=== PATIENT | male | born 1950 | race Caucasian/White ===

== ENCOUNTER 2017-06-14 09:43 | Inpatient (IN) | payer MEDICARE ==
[~2017-06-14] VITALS: Ht 177.8 cm; Wt 77.7 kg
[~2017-06-14 09:43] MED LIST: ASPI-496 PO; CELE200C PO; DIAZ5TAB PO; DOCU-131 PO; FISH OIL PO; ONDA4TAB7 PO; OXYC5CAP2 PO; TRAM50TA2 PO; VITAMIN D3 PO
[2017-06-14] MEDS ORDERED: LACTATED RINGERS 1,000 ML IV SCH ×2 (10:17→10:43)
[2017-06-14] MEDS ORDERED: FENTANYL PF 250 MCG/5ML ONE (10:19)
[2017-06-14] MEDS ORDERED: MIDAZOLAM 1 MG/ML, 2ML ONE (10:19)
[2017-06-14] MEDS ORDERED: BUPIVACAINE/PF 0.25% ONE (10:20)
[2017-06-14] MEDS ORDERED: LIDOCAINE-MPF 2% ,5ML ONE (10:20)
[2017-06-14] MEDS ORDERED: DEXAMETHASONE 4 MG/ML, 1ML ONE (10:21)
[2017-06-14] MEDS ORDERED: CEFAZOLIN 1,000 MG ONE (10:21)
[2017-06-14] MEDS ORDERED: ONDANSETRON 2MG/ML, 2ML ONE (10:21)
[2017-06-14] MEDS ORDERED: PROPOFOL 10 MG/ML, 20ML ONE (10:21)
[2017-06-14] MEDS ORDERED: ONDANSETRON ODT 8 MG PO ONE (10:30)
[2017-06-14] MEDS ORDERED: ACETAMINOPHEN 500 MG TABLET PO ONE (10:30)
[2017-06-14] MEDS ORDERED: VANCOMYCIN PER PHARMACY MC STA (10:48)
[2017-06-14] MEDS ORDERED: GABAPENTIN 300 MG CAPSULE PO ONE (11:00)
[2017-06-14] MEDS ORDERED: VANCOMYCIN 1,400 MG in SODIUM CHLORIDE 0.9% 250 ML IV ONE (11:00)
[2017-06-14] MEDS ORDERED: TRANEXAMIC ACID 100 MG/ML, 10ML ONE ×4 (11:12)
[2017-06-14] MEDS ORDERED: KETOROLAC 60 MG/2 ML ONE (11:12)
[2017-06-14] MEDS ORDERED: EPINEPHRINE 1 MG/ML, 1ML ONE (11:13)
[2017-06-14] MEDS ORDERED: SODIUM CHLORIDE 0.9% 100 ML ONE (11:13)
[2017-06-14] MEDS ORDERED: ROPIvacaine/PF 0.2%, 20 ML ONE (11:13)
[2017-06-14] MEDS: OXYcodone IR 5MG TABLET PO PRN ×4 (11:14→19:46)
[2017-06-14] MEDS ORDERED: PHENYLEPHRINE 10 MG/ML ONE (11:39)
[2017-06-14] MEDS ORDERED: KETAMINE 100 MG/ML, 5ML ONE (11:39)
[2017-06-14] MEDS ORDERED: ONDANSETRON 2MG/ML, 2ML IVPush PRN (12:30)
[2017-06-14] MEDS ORDERED: ALBUTEROL SULFATE 2.5 MG/3 ML NPPB PRN (12:30)
[2017-06-14] MEDS ORDERED: MIDAZOLAM 1 MG/ML, 2ML IV PRN (12:30)
[2017-06-14] MEDS ORDERED: LABETALOL 5MG/ML, 20ML IV PRN (12:30)
[2017-06-14] MEDS ORDERED: LORazepam 2 MG/ML, 1ML IVPush PRN (12:30)
[2017-06-14] MEDS ORDERED: MEPERIDINE/PF 25MG/0.5ML IVPush PRN (12:30)
[2017-06-14] MEDS ORDERED: PROMETHAZINE 25 MG/ML, 1ML IV PRN (12:30)
[2017-06-14] MEDS ORDERED: ALBUTEROL/IPRATROPIUM 2.5MG/0.5MG, 3 ML NPPB PRN (12:30)
[2017-06-14] MEDS ORDERED: FENTANYL PF 100 MCG/2ML IV PRN (12:30)
[2017-06-14] MEDS ORDERED: morphine SULFATE 10 MG/ML, 1ML IV PRN (12:30)
[2017-06-14] MEDS ORDERED: DIAZEPAM 5 MG/ML, 2ML IVPush PRN (12:30)
[2017-06-14] MEDS ORDERED: hydrALAzine 20 MG/ML, 1ML IV PRN (12:30)
[2017-06-14] MEDS ORDERED: OXYcodone 5 MG/5 ML ORAL.SOL UDC PO PRN (12:30)
[2017-06-14] MEDS ORDERED: FENTANYL PF 100 MCG/2ML ONE (13:39)
[2017-06-14] MEDS ORDERED: OXYcodone 5 MG/5 ML ORAL.SOL UDC ONE (13:40)
[2017-06-14] MEDS ORDERED: ALUMINUM/MAG/SIMETHICONE 30 ML UDC PO PRN (14:00)
[2017-06-14] MEDS ORDERED: TRANEXAMIC ACID 1,000 MG in SODIUM CHLORIDE 0.9% 100 ML IVPB ONE (14:00)
[2017-06-14] MEDS ORDERED: SENNA/DOCUSATE TABLET PO PRN (14:00)
[2017-06-14] MEDS ORDERED: ONDANSETRON 2MG/ML, 2ML IV PRN (14:00)
[2017-06-14] MEDS ORDERED: DIPHENHYDRAMINE 50 MG CAPSULE PO PRN (14:00)
[2017-06-14] MEDS ORDERED: ACETAMINOPHEN 650 MG/20.3 ML UDC PO PRN (14:00)
[2017-06-14] MEDS ORDERED: HYDROmorphone 1 MG/ML, 1ML IV PRN (14:00)
[2017-06-14] MEDS ORDERED: ONDANSETRON 4 MG TABLET PO PRN (14:00)
[2017-06-14] MEDS ORDERED: MAGNESIUM HYDROXIDE 8%, 30ML UDC PO PRN (14:00)
[2017-06-14 15:16] VITALS: BP 104/68
[2017-06-14] MEDS: DIAZEPAM 5 MG TABLET PO PRN ×2 (15:27→19:45)
[2017-06-14] MEDS: D5%-0.45NACL+KCL 20MEQ 1,000 ML IV SCH ×2 (15:40→18:42)
[2017-06-14 18:30] VITALS: BP 109/69
[2017-06-14] MEDS: CEFAZOLIN PMX 1GM/50ML 50 ML IVPB SCH (18:42)
[2017-06-14] MEDS: ASPIRIN 81 MG TABLET EC PO SCH (18:42)
[2017-06-14] MEDS: DOCUSATE 100 MG CAPSULE PO SCH (19:45)
[2017-06-14 20:57] VITALS: BP 116/69
[2017-06-15] MEDS: DIAZEPAM 5 MG TABLET PO PRN (00:05)
[2017-06-15] MEDS: OXYcodone IR 5MG TABLET PO PRN ×3 (00:05→08:08)
[2017-06-15 00:18] VITALS: BP 96/90
[2017-06-15] MEDS: CEFAZOLIN PMX 1GM/50ML 50 ML IVPB SCH (03:22)
[2017-06-15 04:05] VITALS: BP 92/60
[2017-06-15] MEDS ORDERED: DEXAMETHASONE 4 MG/ML, 1ML IVPush SCH (06:00)
[2017-06-15] MEDS: ASPIRIN 81 MG TABLET EC PO SCH (06:29)
[2017-06-15 07:24] VITALS: BP 109/67
[2017-06-15] MEDS: DOCUSATE 100 MG CAPSULE PO SCH (08:08)
[2017-06-15] MEDS: D5%-0.45NACL+KCL 20MEQ 1,000 ML IV SCH (08:08)
[2017-06-15] MEDS ORDERED: TAMSULOSIN 0.4 MG CAP.ER.24H PO SCH (09:00)
[2017-06-15] MEDS ORDERED: ASPI-496 PO (10:39)
[2017-06-15] MEDS ORDERED: CELE200C PO (10:41)
[2017-06-15] MEDS ORDERED: DOCU-131 PO (10:43)
[2017-06-15] MEDS ORDERED: TRAM50TA2 PO (10:45)
[2017-06-15] MEDS ORDERED: ONDA4TAB10 PO (10:47)
[2017-06-15] MEDS ORDERED: DIAZ5TAB PO (10:49)
[2017-06-15] MEDS ORDERED: KETOROLAC 30 MG/1 ML IV SCH (15:00)
== END 2017-06-15 11:15 | disposition home or self-care (01) | DRG 470 ==
LOC: ORIP 09:43 → EDSTATUS 11:30 → 4NOR 14:34 → DCLOUNGE 06-15 10:56
PROVIDERS: ADMIT Orthopaedic Surgery; ATTEND Orthopaedic Surgery
PROC: 0SRD069 Replacement of Left Knee Joint with Oxidized Zirconium on Polyethylene Synthetic Substitute, Cemented, Open Approach (ICD-10-PCS; principal; 2017-06-14 11:30)
DX: M17.12 Unilateral primary osteoarthritis, left knee (principal); Z79.899 Other long term (current) drug therapy; Z91.030 Bee allergy status
CPT/HCPCS: 36415; 85014; 85018; C1713; J0171; J0690; J1100; J1885; J2250; J2405; J2704; J2795; J3010; J3370; J3490; C1776; J2370; J3480; J7050; J7120